=== PATIENT | male | born 1965 | race Two or more races ===

== ENCOUNTER → 2024-05-07 | Outpatient (CLI) | payer OTHER, SELFPAY ==
[2024-05-07 11:51] LABS: Basophils # (Auto) 0.1 Thou/mm3 (0.0-0.2); Basophils % (Auto) 1 % (0-2.5); Eosinophils # (Auto) 0.3 Thou/mm3 (0.0-0.5); Eosinophils % (Auto) 6 % (0-10); Hematocrit 47.9 % (41.0-53.0); Hemoglobin 15.7 g/dL (13.5-16.0); Immature Granulocytes % (Auto) 0 % (0-0); Immature Granulocytes Auto 0.01 Thou/mm3 (0.00-0.00); Lymphocytes # (Auto) 1.1 Thou/mm3 (1.0-4.8); Lymphocytes % (Auto) 22 % (10-50); Mean Corpuscular HGB Conc 32.8 g/dl (31.0-37.0); Mean Corpuscular Volume 85 fL (80-100); Monocytes # (Auto) 0.5 Thou/mm3 (0.0-0.8); Monocytes % (Auto) 9 % (0-12); Neutrophils # (Auto) 3.3 Thou/mm3 (1.8-7.7); Neutrophils % (Auto) 63 % (37-80); Nucleated Red Blood Cell % 0 /100 WBC (0); Platelet Count 226 Thou/mm3 (140-440); RDW Standard Deviation 40.5 fL (35.1-43.9); Red Blood Count 5.61 Miln/mm3 (4.50-5.90); White Blood Count 5.2 Thou/mm3 (3.8-10.6)
[2024-05-07 12:13] LABS: Alanine Aminotransferase 15 U/L (10-49); Albumin, Serum 4.9 gm/dL (3.5-5.0); Albumin/Globulin Ratio 2.1 (1.2-2.2); Alkaline Phosphatase 57 U/L (46-116); Anion Gap 7 (7-16); Aspartate Amino Transferase 16 U/L (0-34); BUN/Creatinine Ratio 19 Ratio (12-20); Bilirubin,Total 0.5 mg/dL (0.3-1.2); Blood Urea Nitrogen 15 mg/dL (9-23); Carbon Dioxide 31.2 mMol/L (20.0-31.0); Chloride 103 mMol/L (98-107); Cholesterol 202 mg/dL (132-200); Creatinine (Component) 0.8 mg/dL (0.6-1.3); Free T4 (Free Thyroxine) 1.24 ng/dL (0.89-1.76); Globulin 2.3 gm/dL (2.3-3.5); Glucose 123 mg/dL (74-106); HDL Cholesterol 51 mg/dL (40-60); LDL Cholesterol,Calculated 137 mg/dL (0-130); Osmolality,Calculated 283 (275-295); Potassium 4.2 mMol/L (3.4-5.1); Sodium 141 mMol/L (136-145); Thyroid Stimulating Hormone 2.75 uIU/mL (0.55-4.78); Total Protein 7.2 gm/dL (5.7-8.2); Triglycerides 72 mg/dL (30-150); eGFR > 60 See Note
[2024-05-07 12:40] LABS: Ferritin 13 ng/mL (10.5-307.3); Total Iron Binding Capacity 454 mcg/dL (250-425)
[2024-05-07 12:49] LABS: Iron 81 mcg/dL (65-175); Percent Iron Saturation 17 % (20-55); Unsaturated Iron Binding 373 (225-295)
[2024-05-11 06:59] LABS: T3,Total* 100 ng/dL (76-181); Thyroid Peroxidase Antibodies* 4 IU/mL (<9)
== END | disposition home or self-care (01) ==
LOC: COPL 10:40
PROVIDERS: PCP Family Medicine; Referring Provider Nurse Practitioner Family; Visit Provider Nurse Practitioner Family
DX: E03.9 Hypothyroidism, unspecified (principal); E04.1 Nontoxic single thyroid nodule; Z79.890 Hormone replacement therapy; E61.1 Iron deficiency
CPT/HCPCS: 36415; 80053; 80061; 82728; 83540; 83550; 84439; 84443; 84480; 85025; 86376

== ENCOUNTER → 2024-05-15 | Outpatient (CLI) | payer OTHER, SELFPAY ==
--- NOTE | 2024-05-15 13:30 | XR_ITS ---
Examination: Thyroid sonography complete TECHNIQUE: Grayscale sonographic images thyroid lobes with color flow analysis Exam date and time: May 15, 2024 1331 hours INDICATIONS: Thyroid sonogram September 07, 2022 lower pole left thyroid nodule 7 x 6 x 8 mm FINDINGS: Right thyroid 4.2 x 1.8 x 1.5 cm No solid nodules Left thyroid 4.5 x 1.6 x 1.3 cm Lower pole vascular nodule 9 x 6 x 7 mm IMPRESSION: Lower pole left thyroid nodule as above, consider 6 month follow-up thyroid sonography
--- NOTE | 2024-05-15 14:16 | XR_ITS ---
Examination: Foot bilateral, 6 views Technique: AP, oblique, lateral views each foot total 6 views Date and time of exam: May 15, 2024 1410 hours INDICATIONS: Bilateral heel pain beginning one year ago. FINDINGS: Mild osteopenia 4 mm posterior right bony calcaneal spur 3 mm posterior left bony calcaneal spur No fracture or dislocation involving either foot Bilateral mild narrowing first metatarsophalangeal joints No cortical bone destruction IMPRESSION: Bilateral small posterior bony calcaneal spurs
== END | disposition home or self-care (01) ==
PROVIDERS: PCP Nurse Practitioner Family; Referring Provider Nurse Practitioner Family; Visit Provider Nurse Practitioner Family
DX: E04.1 Nontoxic single thyroid nodule (principal); M77.32 Calcaneal spur, left foot; M77.31 Calcaneal spur, right foot
CPT/HCPCS: 73630; 76536

== ENCOUNTER → 2024-07-06 | Outpatient (CLI) | payer OTHER, SELFPAY ==
[2024-07-06 14:25] LABS: Ferritin 16 ng/mL (10.5-307.3); Iron 66 mcg/dL (65-175); Percent Iron Saturation 15 % (20-55); Total Iron Binding Capacity 426 mcg/dL (250-425); Unsaturated Iron Binding 360 (225-295)
== END | disposition home or self-care (01) ==
LOC: COPL 12:24
PROVIDERS: PCP Nurse Practitioner Family; Referring Provider Nurse Practitioner Family; Visit Provider Nurse Practitioner Family
DX: E61.1 Iron deficiency (principal)
CPT/HCPCS: 36415; 82728; 83540; 83550